=== PATIENT | female | born 1975 | race Caucasian/White ===

== ENCOUNTER 2023-02-14 14:07 | Emergency (ER) | payer OTHER ==
[~2023-02-14] VITALS: Ht 167.6 cm; Wt 59.0 kg
[2023-02-14 14:18] VITALS: BP 139/99
[2023-02-14] MEDS ORDERED: Ultram50 MG PO (16:05)
== END 2023-02-14 16:10 | disposition home or self-care (01) ==
LOC: ER 14:07
DX: M25.562 Pain in left knee (principal); Z88.8 Allergy status to other drugs, medicaments and biological substances; Z88.0 Allergy status to penicillin; F17.210 Nicotine dependence, cigarettes, uncomplicated
CPT/HCPCS: 73560-LT; 99283-25